=== PATIENT | female | born 1965 | race Caucasian/White ===

== ENCOUNTER 2024-12-01 09:20 | Day surgery (SDC) | payer OTHER ==
[~2024-12-01] VITALS: Ht 160 cm; Wt 60.0 kg
[~2024-12-01 09:20] MED LIST: ATORVASTATIN CA40 MG PO; FARXIGA10 MG PO; FLUOXETINE HCL40 MG PO; IBLOOD GLUCOSE TEST STRIP 1 EA TEST VI PRN; LACTATED RINGER'S 1,000 ML IV SCH; LIDOCAINE HCL 1% 5 ML SDV INJ ONE; LISINOPRIL5 MG PO; OLANZAPINE2.5 MG PO; TRULICITY4.5 MG/0.5 SUB-Q
[2024-12-01 10:03] VITALS: BP 116/58
[2024-12-01] MEDS ORDERED: PROPRANOLOL HCL20 MG PO (10:05)
[2024-12-01] MEDS ORDERED: LIDOCAINE HCL 2% 5 ML SDV ONE (11:40)
--- NOTE | 2024-12-01 12:24 | NUR ---
12/01/24 1224 Jennifer Preston LE 1211: PT ARRIVES TO PACU NON AROUSAL. REPORT RECEIVED FROM COUNTER ROLLER AND GANG SAW OPERATOR. LE 1215: PT IS AUDIBLY PASSING GAS. LE 1220: PT ROUSES, ROLLS TO HER BACK AND FALLS BACK ALSEEP. SHE DOES WAKE UP TO VERBAL STIMULI AND ANSWERS QUESTIONS APPROPRIATELY.
[2024-12-01 12:37] VITALS: BP 135/76
--- NOTE | 2024-12-03 08:50 | OR ---
[facility] [address] [place], [place] [address] Signed DATE OF OPERATION: 12/01/2024 SURGEON: Paulie Wang DO PREOPERATIVE DIAGNOSIS: Colon cancer screening. POSTOPERATIVE DIAGNOSES: 1. Colon cancer screening with colonic polyps at 55 and 90 cm. 2. Diverticulosis. PROCEDURE PERFORMED: Pancolonoscopy with polyp biopsy at 55 and 90 cm. ANESTHESIA: IV sedation. ESTIMATED BLOOD LOSS: None. DRAINS: None. COMPLICATIONS: None. DESCRIPTION OF PROCEDURE: The patient was brought to the GI lab, placed in the supine position. After induction of IV sedation, the patient was placed in the left lateral position, padded to the satisfaction of anesthesia. The Olympus video scope was introduced into the anus and while under direct visualization and insufflation, to the rectosigmoid, sigmoid colon, descending colon, transverse colon, ascending colon to the cecum. Insufflation was maintained and the scope was withdrawn, inspecting the mucosal surfaces throughout the withdrawal. No intrinsic or extrinsic masses were noted in the cecum or ascending colon. At approximately 90 cm, a flat broad-based polyp was noted. Multiple biopsies were taken, passed off the field for pathologic review. Satisfactory hemostasis was maintained. The scope was then brought back in the transverse colon. No intrinsic or extrinsic masses were appreciated. Scope was brought back past the splenic flexure into the descending colon and approximately at 55 cm a flat broad-based polyp was identified. Multiple biopsies were taken and passed off the field for pathologic Electronically Signed By: PAULIE WANG DO 12/03/24 0850 PATIENT NAME: ADAMA BONILLA OPERATIVE REPORT DATE OF : 67 REPORT #: [id number] PHYSICIAN: PAULIE WANG DO PCP: NOAM OLIVEIRA PA-C REPORT IS CONFIDENTIAL AND NOT TO BE RELEASED WITHOUT AUTHORIZATION [facility] [address] [place] [id number] Signed review. Satisfactory hemostasis was maintained. The scope was brought back into the sigmoid colon. No intrinsic or extrinsic masses were noted but scattered diverticulosis was noted. No evidence of diverticulitis was noted. Scope was brought back into the rectosigmoid. No pathology was noted. The scope was then brought back into the rectum. The rectum was unremarkable. Colon was decompressed. Scope was withdrawn in its entirety. The patient tolerated the procedure well and taken to recovery room in satisfactory condition Paulie Wang DO RS/MODL /[id number] Copies: ~ Electronically Signed By: PAULIE WANG DO 12/03/24 0850 PATIENT NAME: ADAMA BONILLA OPERATIVE REPORT DATE OF : 67 REPORT #: [id number] PHYSICIAN: PAULIE WANG DO PCP: NOAM OLIVEIRA PA-C REPORT IS CONFIDENTIAL AND NOT TO BE RELEASED WITHOUT AUTHORIZATION
--- NOTE | 2024-12-03 15:37 | PATH ---
[facility] [address] [facility] [place], [place] [address] Signed SPECIMEN(S): A COLON POLYP AT 90 CM SPECIMEN(S): B COLON POLYP AT 55 CM SPECIMEN SOURCE: A. COLON POLYP AT 90 CM B. COLON POLYP AT 55 CM CLINICAL HISTORY: Screening, diverticulosis, polyp X2 FINAL PATHOLOGIC DIAGNOSIS: A. Colon polyp at 90 cm: - Tubular adenoma (one fragment). B. Colon polyp at 55 cm: - Tubular adenoma (one fragment). JVR:raeann MICROSCOPIC EXAMINATION: Histologic sections of all submitted blocks are examined by light microscopy. These findings, together with the gross examination, support the pathologic diagnosis. GROSS DESCRIPTION: A. The specimen, labeled and designated "Xiang, colon polyp at 90 cm," is received in formalin and consists of one montano soft tissue fragment, 0.9 cm. Entirely submitted in (A1). B. The specimen, labeled and designated "Xiang, colon polyp at 55 cm," is received in formalin and consists of one montano soft tissue fragment, 0.8 cm. Entirely submitted in (B1). VB (under the direct supervision of a pathologist) The Gross Description was prepared using a voice recognition system. The report was reviewed for accuracy; however, sound-alike word errors, addition and/or deletions may occur. If there is any question about this report, please contact Client Services. PERFORMING LABORATORY: Technical component was performed by [facility], [address] [place] [id number] (CLIA# [id number]). Professional interpretation was performed by [facility], [address] [place] [address], [place] [address] (CLIA#: [id number]). PATIENT NAME: ADAMA BONILLA PATHOLOGY DATE OF : 67 REPORT #: [id number] PHYSICIAN: TASHI PATHOLOGY PCP: NOAM OLIVEIRA PA-C REPORT IS CONFIDENTIAL AND NOT TO BE RELEASED WITHOUT AUTHORIZATION [address] [place], [place] [address] Signed Diagnostician: Pee Ortega MD Pathologist Electronically Signed 12/03/2024 Copies: ~ PATIENT NAME: ADAMA BONILLA PATHOLOGY DATE OF : 67 REPORT #: [id number] PHYSICIAN: TASHI PATHOLOGY PCP: NOAM OLIVEIRA PA-C REPORT IS CONFIDENTIAL AND NOT TO BE RELEASED WITHOUT AUTHORIZATION
== END 2024-12-01 12:44 | disposition home or self-care (01) ==
LOC: OPS 09:20 → DS 09:20 → OPS 10:55 → DS 12:30 → OPS 12:30
PROVIDERS: ATTEND Surgery
PROC: 0DBL8ZX Excision of Transverse Colon, Via Natural or Artificial Opening Endoscopic, Diagnostic (ICD-10-PCS; 2024-12-01)
PROC: 0DBN8ZX Excision of Sigmoid Colon, Via Natural or Artificial Opening Endoscopic, Diagnostic (ICD-10-PCS; principal; 2024-12-01 10:55)
DX: Z12.11 Encounter for screening for malignant neoplasm of colon (principal); D12.5 Benign neoplasm of sigmoid colon; D12.3 Benign neoplasm of transverse colon; K57.30 Diverticulosis of large intestine without perforation or abscess without bleeding; E11.9 Type 2 diabetes mellitus without complications; I10 Essential (primary) hypertension; E78.5 Hyperlipidemia, unspecified; F32.9 Major depressive disorder, single episode, unspecified; F43.10 Post-traumatic stress disorder, unspecified; Z79.899 Other long term (current) drug therapy; Z88.8 Allergy status to other drugs, medicaments and biological substances
CPT/HCPCS: 00812; J2003; J2704; J7121

== ENCOUNTER 2025-01-31 12:29 | Observation (INO) | payer OTHER ==
[~2025-01-31] VITALS: Ht 160 cm; Wt 59.3 kg
[~2025-01-31 12:29] MED LIST changes: -IBLOOD GLUCOSE TEST STRIP 1 EA TEST VI PRN; -LACTATED RINGER'S 1,000 ML IV SCH; -LIDOCAINE HCL 1% 5 ML SDV INJ ONE; +PROPRANOLOL HCL20 MG PO
[2025-01-31 13:22] LABS: BASOPHILS 0.4 % (0.1-1.2); EOSINOPHILS 0.9 % (0.7-5.8); LYMPHOCYTES 19.4 % (19.3-51.7); MCH 28.7 PG (25.6-32.2); MCHC 32.2 g/dL (32.2-35.5); MCV 89.0 fL (79.4-94.8); MONOCYTES 5.4 % (4.7-12.5); NEUTROPHILS 73.5 % (34.0-71.1); RBC 4.99 M/uL (3.93-5.22)
[2025-01-31 13:40] LABS: ALT (SGPT) 47 U/L (14-59); AST (SGOT) 20 U/L (15-37); GLOMERULAR FILTRATION RATE,EST 91 mL/min (>60); PROTEIN, TOTAL 7.0 g/dL (6.4-8.2); UREA NITROGEN 9 mg/dL (7-18)
[2025-01-31] MEDS ORDERED: MORPHINE SULFATE 4 MG/ML VIAL IV ONE (14:00)
[2025-01-31] MEDS ORDERED: SODIUM CHLORIDE 0.9% 1,000 ML IV PRN (15:15)
[2025-01-31 16:47] LABS: BLOOD/HGB, URINE NEGATIVE (Negative); KETONE, URINE NEGATIVE (Negative); LEUK ESTERASE, URINE NEGATIVE (negative); NITRITE, URINE NEGATIVE (negative)
[2025-01-31 17:03] LABS: AMPHETAMINES, URINE NEGATIVE (NEGATIVE); BARBITURATES, URINE NEGATIVE (NEGATIVE); BENZODIAZEPINE, URINE NEGATIVE (NEGATIVE); CANNABINOID, URINE POSITIVE (NEGATIVE); COCAINE, URINE NEGATIVE (NEGATIVE); ECSTASY, URINE NEGATIVE (NEGATIVE); FENTANYL, URINE NEGATIVE (NEGATIVE); METHADONE, URINE NEGATIVE (NEGATIVE); OPIATES, URINE POSITIVE (NEGATIVE); OXYCODONE, URINE NEGATIVE (NEGATIVE); PHENCYCLIDINE, URINE NEGATIVE (NEGATIVE)
[2025-01-31] MEDS ORDERED: LACTATED RINGER'S 1,000 ML IV SCH (17:15)
[2025-01-31] MEDS ORDERED: ACETAMINOPHEN 325 MG TAB PO PRN (17:15)
[2025-01-31] MEDS ORDERED: IBLOOD GLUCOSE TEST STRIP 1 EA TEST XX PRN (17:15)
[2025-01-31] MEDS ORDERED: DEXTROSE 50% 50 ML SYR IV PRN ×2 (17:15)
[2025-01-31] MEDS ORDERED: DEXTROSE 5% 1,000 ML IV PRN (17:15)
[2025-01-31] MEDS ORDERED: GLUCAGON,HUMAN RECOMBINANT 1 MG/ML VIAL SUB-Q PRN (17:15)
[2025-01-31] MEDS ORDERED: HYDROCODONE/ACETA 5/325 TAB PO PRN (17:30)
--- NOTE | 2025-01-31 17:40 | NUR ---
PATIENT ARRIVES TO CCU ROOM 130 VIA STRETCHER MOVED BY THE ED RN. PATIENT ABLE TO STAND AND PIVOT TO HOSPITAL BED. PATIENT DENIES DIZZINESS AT THIS TIME. PATIENT REQUEST TO LEAVE PANTS ON. NO EVIDENCE OF ACUTE DISTRESS NOTED. THIS RN AND SHARON RN REMAIN IN ROOM.
--- NOTE | 2025-01-31 17:50 | NUR ---
HANDOFF REPORT RECEIVED FROM TEN REYES. ALL QUESTIONS ANSWERED. 2 RN SKIN ASSESSMENT COMPLETE.
[2025-01-31 17:57] VITALS: BP 112/71
--- NOTE | 2025-01-31 18:30 | NUR ---
PATIENT ASSESSMENT COMPLETE. PATIENT ALERT AND ORIENTED. PATIENT DENIES DIZZINESS OR LIGHTHEADEDNESS AT THIS TIME. HR 70'S, NSR. RR EVEN AND UNLABORED. SPO2 93% ON RA. PATIENT DENIES NAUSEA AT THIS TIME. PAIN 5/10 IN LOWER BACK AND NECK; PRN NORCO ADMINISTERED PER EMAR. PATIENT FINISHED MEAL PROVIDED. PATIENT ABLE TO MOVE ALL FOUR EXTREMITIES W/O DIFFICULTY. CMS INTACT. VITAL SIGNS STABLE. PATIENT DENIES NEED TO VOID. PATIENT EDUCATED ON USING CALL LIGHT AND NOT TO GET UP W/O ASSISTANCE FROM STAFF. PATIENT VERBALIZES UNDERSTANDING. IV SITE INTACT, IVF INFUSING PER EMAR. CALL LIGHT IN REACH. BED ALARM ON
--- NOTE | 2025-01-31 20:15 | NUR ---
PATIENT RESTING IN BED, ALERT AND ORIENTED. SHE REPORTS PAIN IS MINIMAL AT THIS, HEAD AND BACK. DISCUSSED PLAN IF CARE WITH PATIENT. ASSESSMENT COMPLETE. SHE IS VERY COOPERATIVE [facility] CARE PLAN, SHE REPORTS SHE HAS NO NEEDS AT THIS TIME. DISCUSSED WITH PATIENT THAT FOR TONIGHT HER REGULAR HOME MEDICATIONS WILL BE HELD DUE TO CURRENT SYMPTOMATIC LOW B/P. EXPLAINED THE AND OUR PHARMACY WILL REVIEW HER HOME MEDICATIONS AND LIKELY MAKE ADJUSTMENTS TO HELP IMPROVE HYOPTENSION ISSUES. PATIENT VERBALIZED THAT WAS ALL EXCEPTABLE AT THIS TIME.
[2025-01-31 20:44] VITALS: BP 102/53
[2025-01-31] MEDS ORDERED: IBLOOD GLUCOSE TEST STRIP 1 EA TEST VI SCH (21:00)
[2025-01-31] MEDS ORDERED: MELATONIN 3 MG TAB PO PRN (21:00)
[2025-01-31] MEDS ORDERED: INSULIN LISPRO 100 UNIT/ML ML SUB-Q SCH (21:00)
--- NOTE | 2025-02-01 00:23 | NUR ---
ROUNDING ON PATIENT, PATIENT REPORTS SHE IS FEELING LIKE SHE CAN URINATE, PATIENT UP TO BEDSIDE COMMODE TOLERATED ACTIVITY WELL, SHE REPORTED NO DIZZINESS WITH GOING TO COMMODE, SHE VOIDED 450ML CONCENTRATED YELLOW URINE, THEN TRANSFERED BACK TO BED, SHE WAS NOT STEADY RETURNING TO BED. SHE REPORTED PAIN 6/10 AT HER BACK, NORCO PRN ADMINISTERED AT THIS TIME. FRESH WATER PROVIDED WITH SUGAR FREE PUDDING SNACK. SHE REPORTS NO FURTHER NEEDS AT THIS TIME. BED ALARM ON FOR PATIENT SAFETY.
[2025-02-01 00:33] VITALS: BP 122/62
[2025-02-01 05:13] LABS: BASOPHILS 0.9 % (0.1-1.2); EOSINOPHILS 3.3 % (0.7-5.8); LYMPHOCYTES 32.7 % (19.3-51.7); MCH 28.2 PG (25.6-32.2); MCHC 31.2 g/dL (32.2-35.5); MCV 90.6 fL (79.4-94.8); MONOCYTES 7.5 % (4.7-12.5); NEUTROPHILS 55.4 % (34.0-71.1); RBC 4.25 M/uL (3.93-5.22)
[2025-02-01 05:24] VITALS: BP 105/66
[2025-02-01 05:28] LABS: ALT (SGPT) 87.0 U/L (14-59); AST (SGOT) 49.0 U/L (15-37); GLOMERULAR FILTRATION RATE,EST 102.0 mL/min (>60); PROTEIN, TOTAL 5.7 g/dL (6.4-8.2); UREA NITROGEN 8.0 mg/dL (7-18)
--- NOTE | 2025-02-01 06:18 | NUR ---
ROUNDING ON PATIENT FOR AM ASSESSMENT AND ORTHOSTATIC V/S PER ORDER. PATIENT REPORTS NEED TO GET UP TO BSC. PATIENT TOLERATED ACTIVITY WELL, NO DIZZINESS, SHE DOES BECOME UNSTEADY WHEN BENDING OR LEANING FOR MIDLINE. SHE VOIDED 500ML CLEAR YELLOW URINE THIS AM. SHE REPORTS MILD PAIN AT HER NECK, SHE DENIES NEED FOR PAIN MEDICATIONS AT THIS TIME. DENIES ANY FURHTER NEEDS THIS AM, FRESH WATER PROVIDED. NO NEW CONCERNS FROM AM ASSESSMENT.
--- NOTE | 2025-02-01 06:26 | NUR ---
ROUNDING BACK IN PATIENT ROOM, PATIENT REPORTS HER NECK AND UPPER BACK PAIN IS INCREASING, AND SHE WOULD LIKE THE PAIN MEDICATIONS FOR 6/10 PAIN. NORCO PRN ADMINISTERED AT THIS TIME.
--- NOTE | 2025-02-01 07:15 | NUR ---
HANDOFF REPORT RECEIVED FROM TEN CHO. ALL QUESTIONS ANSWERED. PATIENT RESTING IN BED. VITALS SIGNS STABLE. NO EVIDENCE OF ACUTE DISTRESS NOTED. BED ALARM ON. CALL LIGHT IN REACH
--- NOTE | 2025-02-01 07:57 | NUR ---
PATIENT ASSESSMENT COMPLETE. PATIENT ALERT AND ORIENTED. PATIENT SITTING UP IN BED. HR 70'S, NSR. SPO2 93% ON RA. PATIENT DENIES HAVING COUGH OR SOB AT THIS TIME. BOWEL TONES ACTIVE. PATIENT DENIES NAUSEA AT THIS TIME. CMS INTACT. NO EDEMA NOTED TO BLE OR BUE. PATIENT RATES PAIN 2/10 IN LOWER BACK AND NECK. PATIENT DESCRIBES PAIN "DULL". PATIENT PROVIDED WARM WASH RAG. PATIENT DENIES BATHROOM NEEDS AT THIS TIME. PATIENT REFUSES NEW UNDERWEAR AND REQUESTS TO LEAVE PANTS ON. PATIENT ASSISTED UP TO CHAIR, SBA. PATIENT DENIES DIZZINESS OR LIGHTHEADEDNESS WHILE AMBULATING AND STATES "I FEEL FINE". HR 70'S-80'S WITH AMBULATION. PATIENT SITTING UP IN CHAIR EATING MEAL. IN ROOM. PATIENT UPDATED ON POC. CALL LIGHT IN REACH. PATIENT EDUCATED ON SAFETY MEASURES.
[2025-02-01 08:00] VITALS: BP 110/52
[2025-02-01] MEDS ORDERED: DAPAGLIFLOZIN10 MG PO (08:16)
[2025-02-01] MEDS ORDERED: OLANZAPINE20 MG PO (08:17)
--- NOTE | 2025-02-01 08:25 | NUR ---
PATIENT SITTING UP IN BED. THIS RN IN ROOM TO REVIEW MEDICATION RECONCILLIATION. PATIENT DENIES ANY NEEDS AT THIS TIME. CALL LIGHT IN REACH.
[2025-02-01] MEDS ORDERED: MICONAZOLE NITRATE 1 EA BTL TOP PRN (08:30)
[2025-02-01] MEDS ORDERED: OLANZapine 2.5 MG TAB PO SCH (09:00)
--- NOTE | 2025-02-01 09:02 | NUR ---
patient sitting up in bedside chair. remains in room. vital signs stable. call light in reach
--- NOTE | 2025-02-01 09:25 | NUR ---
DR. CONNELL AT BEDSIDE ROUNDING WITH PATIENT AND PATIENTS . ALL QUESTIONS ANSWERED. POC DISCUSSED. PLAN TO START MIDODRINE AND LIDOCAINE PATCH. PLAN TO ASSESS ORTHOSTATIC VITALS AFTER LUNCH AND PLAN TO DISCHARGE THIS AFTERNOON. PATIENT AND PATIENT DENY ANY QUESTIONS OR CONCERNS AT THIS TIME. CALL LIGHT IN REACH.
[2025-02-01] MEDS ORDERED: MIDODRINE HCL 5 MG TAB PO SCH (09:45)
[2025-02-01 10:21] VITALS: BP 128/73
--- NOTE | 2025-02-01 11:12 | NUR ---
UR CLINICAL REVIEW: MCG-PER MCG REVIEW MEETS OBS FOR SYNCOPE WITH NEED FOR IV HYDRATION, SERIAL LABS AND MONITORING EOCCO OBS 01/31/25 @ 1711 ORDER MATCHES REG NO AUTH REQUIRED FOR OBS PATIENT PER MODA GUIDELINES DISCHARGE TO HOME WHEN STABLE 02/02/25
--- NOTE | 2025-02-01 11:20 | NUR ---
Spoke with Eliza. She states she lives in a house with 4 steps. No issues getting in or out of the home. She lives with her spouse. She denies any needs for assistance. 35 yo daughter lives with them. She plans on dc to home today. She works with [facility] and meds are managed by [facility] through telehealth at [facility]. She denies any financial or safety concerns.
[2025-02-01] MEDS ORDERED: PHARMACY RENAL DOSE ADJUSTMENT 1 DOSE MISC PO SCH (12:00)
[2025-02-01 12:12] VITALS: BP 126/60
--- NOTE | 2025-02-01 12:20 | NUR ---
PATIENT SITTING UP IN CHAIR. ORTHOSTATIC VITALS OBTAINED. PATIENT DENIES FEELING LIGHTHEADED OR DIZZY. PATIENT STATES DESIRE TO DC HOME AND STATES "I FEEL COMFORTABLE DISCHARGING RIGHT NOW". PATIENT UPDATED ON POC. NO FURTHER NEEDS IDENTIFIED. CALL LIGHT IN REACH
--- NOTE | 2025-02-01 12:28 | NUR ---
PHONE CALL UPDATE PROVIDED TO DR. CONNELL. NOTIFIED OF ORTHOSTATIC VITALS AND PATIENT UPDATE. PLAN TO DISCHARGE PATIENT.
[2025-02-01] MEDS ORDERED: MIDODRINE HCL5 MG PO (12:49)
[2025-02-01] MEDS ORDERED: HYDROCODON-ACE1 EA10 PO (12:49)
[2025-02-01 13:10] VITALS: BP 109/71
--- NOTE | 2025-02-01 13:28 | NUR ---
PATIENT DISCHARGE COMPLETE. PATIENT PROVIDED EDUCATION ON ORTHOSTATIC HYPOTENSION AND EDUCATION ON NEW MEDICATIONS. ALL QUESTIONS ANSWERED. PATIENT NOTIFIED OF UPCOMING APPT W/ PCP. PATIENT EDUCATED ON ABDOMINAL BINDER. IV SITE DC'D AND WNL. VITAL SIGNS STABLE.
[2025-02-01] MEDS ORDERED: ATORVASTATIN 40 MG TAB PO SCH (17:00)
--- NOTE | 2025-02-02 07:25 | EKG ---
[facility] [address] [facility] [place] [address] Signed Normal sinus rhythm Normal ECG When compared with ECG of 24-NOV-2024 07:26, No significant change was found Confirmed by Vic Connell DO ([id number]) on 02/02/2025 7:25:03 AM Electronically Signed By: VIC CONNELL DO 02/02/25 0725 PATIENT NAME: ADAMA BONILLA Electrocardiogram DATE OF : 67 PHYSICIAN: VIC CONNELL DO REPORT #: [id number] REPORT IS CONFIDENTIAL AND NOT TO BE RELEASED WITHOUT AUTHORIZATION
== END 2025-02-01 13:35 | disposition home or self-care (01) ==
LOC: ED 12:29 → CCU 12:30
PROVIDERS: Emergency Medicine; ADMIT Student in an Organized Health Care Education/Training Program; ATTEND Student in an Organized Health Care Education/Training Program
DX: I95.2 Hypotension due to drugs (principal); T43.595A Adverse effect of other antipsychotics and neuroleptics, initial encounter; S01.01XA Laceration without foreign body of scalp, initial encounter; W18.30XA Fall on same level, unspecified, initial encounter; M48.54XA Collapsed vertebra, not elsewhere classified, thoracic region, initial encounter for fracture; E11.9 Type 2 diabetes mellitus without complications; F32.9 Major depressive disorder, single episode, unspecified; F41.1 Generalized anxiety disorder; I10 Essential (primary) hypertension; E78.00 Pure hypercholesterolemia, unspecified; F43.10 Post-traumatic stress disorder, unspecified; Z79.85 Long-term (current) use of injectable non-insulin antidiabetic drugs; Z79.899 Other long term (current) drug therapy; Z88.8 Allergy status to other drugs, medicaments and biological substances
CPT/HCPCS: 12001; 36415; 70450; 72125; 72128; 72131; 80053; 80307; 81003; 83605; 83735; 84443; 84484; 85025; 93005; 93010; 96361; 96374; 96375; 97162; 97166; 97530; 97535; 99285-25; G0378; G0480; J2270; J2405; J7030; J7121

== ENCOUNTER 2025-03-15 10:03 | Emergency (ER) | payer OTHER ==
[~2025-03-15] VITALS: Ht 160 cm; Wt 61.1 kg
[~2025-03-15 10:03] MED LIST changes: +DAPAGLIFLOZIN10 MG PO; +HYDROCODON-ACE1 EA10 PO; +MIDODRINE HCL5 MG PO; +OLANZAPINE20 MG PO
[2025-03-15] MEDS ORDERED: TIZANIDINE HCL2 M1 (10:24)
[2025-03-15] MEDS ORDERED: LIDODERM1 EACH TOP (10:44)
[2025-03-15] MEDS ORDERED: NEURONTIN300 MG PO (10:44)
[2025-03-15] MEDS ORDERED: KETOROLAC TROMETHAMINE 30 MG/ML VIAL IM ONE (10:45)
[2025-03-15] MEDS ORDERED: [UNRECOGNIZED DRUG - OTHER] PO (11:38)
[2025-03-15 11:50] VITALS: BP 178/78
[2025-03-15] MEDS ORDERED: HYDROCODON-ACE1 EA10 PO (14:13)
== END 2025-03-15 11:50 | disposition home or self-care (01) ==
LOC: ED 10:03
DX: S22.019D Unspecified fracture of first thoracic vertebra, subsequent encounter for fracture with routine healing (principal); S22.029D Unspecified fracture of second thoracic vertebra, subsequent encounter for fracture with routine healing; S22.039D Unspecified fracture of third thoracic vertebra, subsequent encounter for fracture with routine healing; F43.10 Post-traumatic stress disorder, unspecified; E11.9 Type 2 diabetes mellitus without complications; W18.30XD Fall on same level, unspecified, subsequent encounter; Z79.899 Other long term (current) drug therapy; Z88.8 Allergy status to other drugs, medicaments and biological substances
CPT/HCPCS: 96372; 99283; J1885